=== PATIENT | male | born 1985 | race Caucasian/White ===

== ENCOUNTER 2018-03-13 06:46 | Emergency (ER) | payer OTHER, MEDICAID ==
[~2018-03-13] VITALS: Ht 162.6 cm; Wt 68.5 kg
[2018-03-13] MEDS ORDERED: MELOXICAM15 MG PO (06:54)
== END 2018-03-13 07:35 | disposition home or self-care (01) ==
LOC: ED 06:46
DX: S63.501A Unspecified sprain of right wrist, initial encounter (principal); X58.XXXA Exposure to other specified factors, initial encounter; F17.200 Nicotine dependence, unspecified, uncomplicated; Z88.0 Allergy status to penicillin; Z79.899 Other long term (current) drug therapy
CPT/HCPCS: 99283